=== PATIENT | male | born 1985 | race Hispanic/Latino ===

== ENCOUNTER → 2021-05-17 | Outpatient (REF) | payer OTHER ==
[2021-05-17 10:49] LABS: SEMEN APPEARANCE OPAQUE (OPAQUE); SEMEN VISCOSITY LIQUID (LIQUID); SEMEN VOLUME 1.5 ml (2.0-5.0); SEMEN pH 8.5 (7.0-8.0); WBC CONCENTRATION <=1 M/ml (<=1 M/ml)
== END ==
LOC: M LAB REF 10:42
PROVIDERS: ATTEND Preventive Medicine Undersea and Hyperbaric Medicine
DX: Z30.2 Encounter for sterilization (principal)

== ENCOUNTER 2023-02-24 19:33 | Emergency (ER) | payer OTHER ==
[~2023-02-24] VITALS: Ht 170.2 cm; Wt 87.9 kg
[2023-02-24] MEDS ORDERED: ZOLO50TA PO (19:41)
[2023-02-24] MEDS ORDERED: LIDO1PAD TOP (19:41)
[2023-02-24] MEDS ORDERED: DICL1GEL3 TOP (19:41)
[2023-02-24] MEDS ORDERED: ACETAMINOPHEN 1000MG 100ML IV BAG IV ONE (21:50)
[2023-02-24] MEDS ORDERED: ONDANSETRON 4MG 2ML VIAL IV ONE (21:50)
[2023-02-24] MEDS ORDERED: ZYRTTAB8 PO (22:12)
[2023-02-24] MEDS ORDERED: VITA200012 PO (22:13)
[2023-02-24] MEDS ORDERED: CYCL5TAB PO (22:14)
[2023-02-24] MEDS ORDERED: NS 1,000 ML IV ONE (22:35)
[2023-02-24] MEDS ORDERED: ONDA4TAB6 PO (23:41)
[2023-02-24 23:52] VITALS: BP 119/65
== END 2023-02-24 23:55 | disposition home or self-care (01) ==
LOC: M ED 19:33
DX: S06.0X0A Concussion without loss of consciousness, initial encounter (principal); W22.09XA Striking against other stationary object, initial encounter; Y92.019 Unspecified place in single-family (private) house as the place of occurrence of the external cause; Y93.89 Activity, other specified; Y99.8 Other external cause status
CPT/HCPCS: 70450; 72125; 99284; J0131; J2405

== ENCOUNTER → 2023-04-01 | Outpatient (CLI) | payer OTHER ==
[~2023-04-01] MED LIST: CYCL5TAB PO; DICL1GEL3 TOP; LIDO1PAD TOP; ONDA4TAB6 PO; VITA200012 PO; ZOLO50TA PO; ZYRTTAB8 PO
== END ==
LOC: M SLEEP 20:00
PROVIDERS: ATTEND Nurse Practitioner Acute Care
DX: G47.33 Obstructive sleep apnea (adult) (pediatric) (principal)